=== PATIENT | female | born 1990 | race African-American/Black ===

== ENCOUNTER 2017-11-07 08:45 | Emergency (ER) | payer OTHER ==
[~2017-11-07] VITALS: Ht 167.6 cm; Wt 62.1 kg
[2017-11-07 09:37] LABS: ABSOLUTE BASOPHIL COUNT 0 /CUMM (0.0-0.2); ABSOLUTE EOSINOPHIL COUNT 0 /CUMM (0.0-0.7); ABSOLUTE GRANULOCYTE CT 1.4 /CUMM (1.4-6.5); ABSOLUTE LYMPH COUNT 2.2 /CUMM (1.2-3.4); ABSOLUTE MONOCYTE COUNT 0.2 /CUMM (0.10-0.60); BASOPHIL % 0.7 % (0.0-2.0); EOSINOPHIL % 0.9 % (0-5); GRANULOCYTE % 36.3 % (42.2-75.2); HEMATOCRIT 33.7 % (37-47); MEAN CORPUSCULAR HGB 27.1 PG (27.0-31.0); MEAN CORPUSCULAR VOLUME 82.2 FL (81.0-99.0); MEAN PLATELET VOLUME 8.6 FL (7.4-10.4); RBC DISTRIBUTION WIDTH 13.6 % (11.5-14.5)
[2017-11-07 09:59] LABS: PLATELET COUNT 239 /CUMM (130-400)
--- NOTE | 2017-11-07 09:59 | ED GI/GU/ABDOMINAL COMPLAINT ---
History of Present Illness General Chief Complaint: Abdominal Pain/Flank Pain Stated Complaint: ABDOMINAL,PELVIC PAIN, PT STATES "SHOOTING CP" Source: patient Exam Limitations: no limitations Vital Signs & Intake/Output Vital Signs & Intake/Output Vital Signs Date Time Temp Pulse Resp B/P B/P Pulse O2 O2 Flow FiO2 Mean Ox Delivery Rate 11/07 1317 97.6 74 18 141/90 100 Room Air 11/07 1115 98.0 78 20 169/83 99 Room Air 11/07 0929 99 Room Air 11/07 0852 97.6 76 20 146/90 98 Room Air Allergies Coded Allergies: No Known Allergies (11/07/17) Reconcile Medications Ibuprofen 800 MG TABLET 1 TAB PO TID PRN PAIN Triage Note: PT C/O "PELVIC PAIN" THIS MORNING, DESCRIBING IT A PUSHING SENSATION AND SHARP. STATES THE PAIN OCCASIONALLY SHOOTS UP INTO HER CHEST. DENIES SOB. DENIES N/V/D. DENIES VAGINAL D/C Triage Nurses Notes Reviewed? yes LMP (ages 10-50): unknown ? n Is pt currently ? No Onset: Abrupt Duration: hour(s): (6), changing over time, continues in ED Timing: single episode today Quality/Severity: cramping, stabbing Severity Numbers: 8 Location: left lower quadrant, right lower quadrant, suprapubic Radiation: chest, flank Activities at Onset: none Prior Abdominal Problems: none Sexually Active: Yes No Modifying Factors: none Modifying Factors: Worsens With: movement, palpation, other (sitting up straight ). Associated Symptoms: abdominal pain, chest pain, nausea/vomiting HPI: 57-year-old female medical history percent for evaluation of leg pain, nausea and chest pain. Patient states that she first noticed bilateral pelvic pain this morning when she woke up. She describes the pain as cramping. She states that several hours later she noticed the pain was radiating up her right flank into her right chest. She describes this pain as sharp stabbing and shooting pain. The pain in her chest is worse when she sits up and resolves when she lays down or stands up. The pain is worse with movement. She reports associated nausea but no vomiting no diarrhea. No urinary symptoms no vaginal discharge or bleeding. She states that she just started taking oral contraceptive pills last week after her last period ended. She is sexually active. No shortness of breath, hemoptysis, lower extremity edema, recent surgery, recent trauma or any other associated symptoms. She is not taking any medicine for her symptoms. (Mateusz Ward) Past History Travel History Traveled to [place] past 21 day No Medical History Any Pertinent Medical History? see below for history Neurological: NONE EENT: NONE Cardiovascular: NONE Respiratory: NONE Gastrointestinal: NONE Hepatic: NONE Renal: NONE Musculoskeletal: NONE Psychiatric: NONE Endocrine: NONE Surgical History Surgical History: none Psychosocial History What is your primary language Faroese Tobacco Use: Never used ETOH Use: occasional use Illicit Drug Use: denies illicit drug use Family History Hx Contributory? No (Mateusz Ward) Review of Systems Review of Systems Constitutional: Reports: no symptoms. EENTM: Reports: no symptoms. Respiratory: Reports: no symptoms. Cardiovascular: Reports: see HPI, chest pain. GI: Reports: see HPI, abdominal pain, nausea. Genitourinary: Reports: no symptoms. Musculoskeletal: Reports: no symptoms. Skin: Reports: no symptoms. Neurological/Psychological: Reports: no symptoms. Hematologic/Endocrine: Reports: no symptoms. Immunologic/Allergic: Reports: no symptoms. All Other Systems: Reviewed and Negative (Mateusz Ward) Physical Exam Physical Exam General Appearance: well developed/nourished, no apparent distress, alert, awake Head: atraumatic, normal appearance Eyes: Bilateral: normal appearance, PERRL, EOMI. Ears, Nose, Throat, Mouth: hearing grossly normal, moist mucous membrane Neck: normal inspection, supple, full range of motion Respiratory: normal breath sounds, no respiratory distress, lungs clear, right lateral ribs and right anterior chest tender to palpation Cardiovascular: regular rate/rhythm, normal peripheral pulses Peripheral Pulses: 2+ radial (R), 2+ radial (L) Gastrointestinal: normal bowel sounds, soft, no organomegaly, tenderness (rlq, suprapubic, llq) Back: normal inspection, normal range of motion, no CVA tenderness Extremities: normal range of motion, no edema Neurologic/Psych: no motor/sensory deficits, awake, alert, oriented x 3, normal gait, normal mood/affect Skin: intact, normal color, warm/dry Core Measures ACS in differential dx? Yes No ASA d/t ruled out Sepsis Present: No Sepsis Focused Exam Completed? No (Mateusz Ward) Progress Differential Diagnosis: appendicitis, biliary colic, bowel obstruction, cholecystitis, diverticulitis, ectopic , hepatitis, intrauterine , kidney stone, ovarian cyst, ovarian torsion, pancreatitis, PID/ cervicitis, SBO, threatened AB, UTI/pyelo Plan of Care: Orders Procedure Date/time Status URINE 11/07 905 Complete URINALYSIS 11/07 905 Complete TROPONIN LEVEL 11/07 905 Complete LIPASE 11/07 905 Complete D-DIMER 11/07 905 Complete COMPREHENSIVE METABOLIC PANEL 11/07 905 Complete CBC WITHOUT DIFFERENTIAL 11/07 905 Complete EKG 11/07 847 Active Laboratory Tests 11/07/17 0954: Urine Color STRAW, Urine Clarity CLEAR, Urine pH 7.0, Ur Specific Harrell 1.010, Urine Protein NEG, Urine Ketones NEG, Urine Nitrite NEG, Urine Bilirubin NEG, Urine Urobilinogen 0.2, Ur Leukocyte Esterase NEG, Ur Microscopic EXAM NOT REQUIRED, Urine Hemoglobin NEG, Urine Glucose NEG, Urine Test NEGATIVE 11/07/17 0925: Anion Gap 14, Estimated GFR > 60, BUN/Creatinine Ratio 21.7, Glucose 95, Calcium 9.5, Total Bilirubin 0.4, AST 22, ALT 32, Alkaline Phosphatase 64, Troponin I < 0.01, Total Protein 7.3, Albumin 4.5, Globulin 2.8, Albumin/Globulin Ratio 1.6, Lipase 130, D-Dimer High Sensitivty < 200, CBC w Diff NO MAN DIFF REQ, RBC 4.10 L, MCV 82.2, MCH 27.1, RDW 13.6, MPV 8.6, Gran % 36.3 L, Lymphocytes % 55.9 H, Monocytes % 6.2, Eosinophils % 0.9, Basophils % 0.7, Absolute Granulocytes 1.4, Absolute Lymphocytes 2.2, Absolute Monocytes 0.2, Absolute Eosinophils 0, Absolute Basophils 0, PUBS MCHC 33.0 Patient seen and evaluated. She has abdominal pain that started today. It radiates up into her chest. Her vital signs are stable. She recently started control so pulmonary embolism cannot be ruled out clinically. We'll check basic blood work including d-dimer and EKG troponin. If d-dimer is negative patient with a CT of her abdomen and pelvis with contrast. D-dimer is negative. CT of her abdomen and pelvis shows ovarian cysts. Ultrasound will be ordered to rule out torsion and further evaluate the cysts. Patient is feeling better after Toradol. Blood work does not show any significant acute findings. Urine is clean. Ultrasound rules out torsion. The ovaries are enlarged bilaterally. This may be related to her new control. Patient will be instructed to rest drink plenty of fluids Tylenol ibuprofen as needed. Make a follow-up with PSYCHIATRIC NURSING AIDE as soon as possible discussed return precautions. Reviewed all results of today's visit. Patient is nontoxic-appearing and agrees the plan. Diagnostic Imaging: Viewed by Me: CT Scan, Ultrasound. Discussed w/RAD: CT Scan, Ultrasound. Radiology Impression: ATIENT: MONISHA MOCK PRESENT AGE: 27 PATIENT ACCOUNT NO: [id number] : 92 LOCATION: [facility] ORDERING PHYSICIAN: Mateusz MARIE SERVICE DATE: 11/07/17 EXAM TYPE: US - US- PELVIC MASS DIAG EXAMINATION: US PELVIC MASS DIAGNOSIS CLINICAL INFORMATION: For further evaluation of findings seen on the recent abdomen and pelvic CT scan. COMPARISON: Abdomen and pelvic CT scan of 11/07/2017. TECHNIQUE: Real-time scanning of the pelvis is acquired via transabdominal approach. FINDINGS: The uterus is anteverted and normal in size measuring 9.9 x 5.4 x 5.9 cm. Cervical length is 3.4 cm. Endometrial stripe thickness is 1.8 cm. Myometrial echotexture is homogeneous. No focal myometrial mass. The right ovary measures 5.0 x 2.3 x 2.2 cm. Right intraovarian arterial and venous blood flow is documented on color and spectral Doppler images. The left ovary is enlarged and has somewhat complex appearance measuring 4.0 x 3.4 x 5.3 cm. There is a collapsed/collapsing cyst with peripheral mildly hyperechoic rim in the left ovary measuring 1.9 cm in maximum dimension and it corresponds to the peripherally enhancing hypodense lesion seen on the CT scan. Left intraovarian arterial and venous blood flow is documented. A 4.0 x 2.0 x 3.0 cm lesion documented by the machine feeder which includes the collapsing cystic lesion; it is unclear whether this represents a complex lesion versus normal ovarian tissue. No adnexal mass. Small free fluid is noted around the left ovary and on the anterior aspect of the uterus. Visualized urinary bladder is unremarkable. IMPRESSION: Somewhat prominent sized ovaries could be within normal limits for patient's age. Somewhat complex appearance of the left ovary is nonspecific. Consider follow-up ultrasound in 2- 3 menstrual cycles. No evidence of active ovarian torsion. Small free fluid in the pelvis is likely physiologic. DICTATED BY: Manuel Elmore MD DATE/TIME DICTATED :11/07/171337 DISC PAD GRINDER:REHAN DATE/TIME TRANSCRIBED:11/07/171337 CONFIDENTIAL, DO NOT COPY WITHOUT APPROPRIATE AUTHORIZATION. < Electronically signed in Other Vendor System> , PATIENT: MONISHA MOCK PRESENT AGE: 27 PATIENT ACCOUNT NO: [id number] : 92 LOCATION: [facility] ORDERING PHYSICIAN: Mateusz MARIE SERVICE DATE: 11/07/17 EXAM TYPE: CAT - CT ABD & PELVIS W IV CONTRAST EXAMINATION: CT ABDOMEN AND PELVIS WITH CONTRAST CLINICAL INFORMATION: Bilateral pelvic pain, worse on the right for one day. COMPARISON: None TECHNIQUE: Multidetector volumetric imaging was performed of the abdomen and pelvis following IV administration of 95 mL of Optiray 320 intravenous contrast. Sagittal and coronal reformatted images were obtained on the technologist's workstation. DLP: 235.78 mGy-cm FINDINGS: LUNG BASES: The visualized lung bases are unremarkable. LIVER, GALLBLADDER, AND BILIARY TREE: Linear hypodensity is noted around the falciform ligament, most consistent with focal fatty infiltration, otherwise unremarkable. The gallbladder is unremarkable with no evidence of radiopaque gallstones, gallbladder wall thickening, or obvious pericholecystic inflammatory changes. PANCREAS: Unremarkable. SPLEEN: Unremarkable. ADRENAL GLANDS: Unremarkable. KIDNEYS AND URETERS: Solitary 0.3 cm nonobstructing calculus is noted at the inferior anterior calyx of the right kidney. Otherwise both kidneys, both renal collecting system appear unremarkable. BLADDER: Unremarkable. GASTROINTESTINAL TRACT: The appendix is collapsed and morphologically appear unremarkable, seen within the right lower quadrant of the abdomen. The small, large bowel loops are decompressed. Extensive fecal residual is noted within the large bowel mostly localized to the sigmoid colon and rectum. The stomach is decompressed. Small amount of fluid is identified in the region of the right iliac fossa extending to the right lower anterior pelvic wall lateral to the urinary bladder, uncertain etiology. ABDOMINAL WALL: No significant hernia is appreciated. LYMPH NODES: Normal. VASCULAR: Unremarkable. PELVIC VISCERA: There is a 4.6 x 4.6 x 2.3 cm cystic mass identified at anterior left iliac fossa with superimposed 2 cm hypodense structure associated with marginal hyperdensity, most consistent with enlarged ovary associated with ruptured follicle. Within the right posterior parametrium, there is a 3.2 x 2.5 x 2.0 cm cystic structure identified, may represent enlarged right ovary. Follow-up pelvic ultrasound is recommended for further full detail evaluation. OSSEOUS STRUCTURES: No suspicious lytic or sclerotic abnormality. IMPRESSION: 1. No CT evidence of appendicitis. 2. 0.3 cm nonobstructing calculus at inferior anterior calyx of the right kidney. 3. Small amount of nonspecific fluid is noted at right iliac fossa extending to the right lower anterior pelvic wall. 4. 4.6 cm cystic mass within the left iliac fossa with 2 cm likely hemorrhagic follicle and 3.2 cm likely enlarged right ovarian follicle. Follow-up pelvic ultrasound is recommended for further full detail evaluation. DICTATED BY: Rosita Stoll MD DATE/TIME DICTATED:11/07/171122 DISC PAD GRINDER:REHAN DATE/TIME TRANSCRIBED:11/07/171122 CONFIDENTIAL, DO NOT COPY WITHOUT APPROPRIATE AUTHORIZATION. Initial ED EKG: normal sinus rhythm (Mateusz Ward) Departure Departure Disposition: HOME OR SELF CARE Condition: Stable Clinical Impression Primary Impression: Abdominal pain Qualifiers: Abdominal location: lower abdomen, unspecified Qualified Code: R10.30 - Lower abdominal pain, unspecified Referrals: Unknown (PCP/Family) Additional Instructions: Rest AND DRINK PLENTY OF fluids. Tylenol and ibuprofen as needed for pain. Make a follow-up with her PSYCHIATRIC NURSING AIDE doctor as soon as possible. Monitor your symptoms return with any concerns. Departure Forms: Customer Survey General Discharge Information Prescriptions: Current Visit Scripts Ibuprofen 1 TAB PO TID PRN PAIN #30 TAB (Mateusz Ward) PA/FIRST GRADE TEACHER Co-Sign Statement Statement: ED Attending supervision documentation- [] I saw and evaluated the patient. I have also reviewed all the pertinent lab results and diagnostic results. I agree with the findings and the plan of care as documented in the PA's/FIRST GRADE TEACHER's documentation. [X] I have reviewed the ED Record and agree with the PA's/FIRST GRADE TEACHER's documentation. [] Additions or exceptions (if any) to the PAs/FIRST GRADE TEACHER's note and plan are summarized below: [] (Brian Cabezas DO)
--- NOTE | 2017-11-07 12:05 | CT SCAN REPORT ---
EXAMINATION: CT ABDOMEN AND PELVIS WITH CONTRAST CLINICAL INFORMATION: Bilateral pelvic pain, worse on the right for one day. COMPARISON: None TECHNIQUE: Multidetector volumetric imaging was performed of the abdomen and pelvis following IV administration of 95 mL of Optiray 320 intravenous contrast. Sagittal and coronal reformatted images were obtained on the technologist's workstation. DLP: 235.78 mGy-cm FINDINGS: LUNG BASES: The visualized lung bases are unremarkable. LIVER, GALLBLADDER, AND BILIARY TREE: Linear hypodensity is noted around the falciform ligament, most consistent with focal fatty infiltration, otherwise unremarkable. The gallbladder is unremarkable with no evidence of radiopaque gallstones, gallbladder wall thickening, or obvious pericholecystic inflammatory changes. PANCREAS: Unremarkable. SPLEEN: Unremarkable. ADRENAL GLANDS: Unremarkable. KIDNEYS AND URETERS: Solitary 0.3 cm nonobstructing calculus is noted at the inferior anterior calyx of the right kidney. Otherwise both kidneys, both renal collecting system appear unremarkable. BLADDER: Unremarkable. GASTROINTESTINAL TRACT: The appendix is collapsed and morphologically appear unremarkable, seen within the right lower quadrant of the abdomen. The small, large bowel loops are decompressed. Extensive fecal residual is noted within the large bowel mostly localized to the sigmoid colon and rectum. The stomach is decompressed. Small amount of fluid is identified in the region of the right iliac fossa extending to the right lower anterior pelvic wall lateral to the urinary bladder, uncertain etiology. ABDOMINAL WALL: No significant hernia is appreciated. LYMPH NODES: Normal. VASCULAR: Unremarkable. PELVIC VISCERA: There is a 4.6 x 4.6 x 2.3 cm cystic mass identified at anterior left iliac fossa with superimposed 2 cm hypodense structure associated with marginal hyperdensity, most consistent with enlarged ovary associated with ruptured follicle. Within the right posterior parametrium, there is a 3.2 x 2.5 x 2.0 cm cystic structure identified, may represent enlarged right ovary. Follow-up pelvic ultrasound is recommended for further full detail evaluation. OSSEOUS STRUCTURES: No suspicious lytic or sclerotic abnormality. IMPRESSION: 1. No CT evidence of appendicitis. 2. 0.3 cm nonobstructing calculus at inferior anterior calyx of the right kidney. 3. Small amount of nonspecific fluid is noted at right iliac fossa extending to the right lower anterior pelvic wall. 4. 4.6 cm cystic mass within the left iliac fossa with 2 cm likely hemorrhagic follicle and 3.2 cm likely enlarged right ovarian follicle. Follow-up pelvic ultrasound is recommended for further full detail evaluation.
--- NOTE | 2017-11-07 14:10 | ULTRASOUND REPORT ---
EXAMINATION: US PELVIC MASS DIAGNOSIS CLINICAL INFORMATION: For further evaluation of findings seen on the recent abdomen and pelvic CT scan. COMPARISON: Abdomen and pelvic CT scan of 11/07/2017. TECHNIQUE: Real-time scanning of the pelvis is acquired via transabdominal approach. FINDINGS: The uterus is anteverted and normal in size measuring 9.9 x 5.4 x 5.9 cm. Cervical length is 3.4 cm. Endometrial stripe thickness is 1.8 cm. Myometrial echotexture is homogeneous. No focal myometrial mass. The right ovary measures 5.0 x 2.3 x 2.2 cm. Right intraovarian arterial and venous blood flow is documented on color and spectral Doppler images. The left ovary is enlarged and has somewhat complex appearance measuring 4.0 x 3.4 x 5.3 cm. There is a collapsed/collapsing cyst with peripheral mildly hyperechoic rim in the left ovary measuring 1.9 cm in maximum dimension and it corresponds to the peripherally enhancing hypodense lesion seen on the CT scan. Left intraovarian arterial and venous blood flow is documented. A 4.0 x 2.0 x 3.0 cm lesion documented by the mold changer which includes the collapsing cystic lesion; it is unclear whether this represents a complex lesion versus normal ovarian tissue. No adnexal mass. Small free fluid is noted around the left ovary and on the anterior aspect of the uterus. Visualized urinary bladder is unremarkable. IMPRESSION: Somewhat prominent sized ovaries could be within normal limits for patient's age. Somewhat complex appearance of the left ovary is nonspecific. Consider follow-up ultrasound in 2-3 menstrual cycles. No evidence of active ovarian torsion. Small free fluid in the pelvis is likely physiologic.
[2017-11-07] MEDS ORDERED: IBUPROFEN800 M1 PO (14:21)
[2017-11-07 15:00] VITALS: BP 136/88
== END 2017-11-07 15:01 ==
LOC: ERH 08:45
PROVIDERS: Physician Assistant Medical
DX: R10.31 Right lower quadrant pain (principal); R10.32 Left lower quadrant pain
CPT/HCPCS: 74177; 81003; 81025; 93005; 93010; 96374; J1885